=== PATIENT | female | born 1970 | race Caucasian/White ===

== ENCOUNTER 2017-09-11 08:31 | Day surgery (SDC) | payer BC ==
[~2017-09-11 08:31] MED LIST: Acetaminophen 1,000 MG/100 ML Infusion Bottle IV SCH; Bisacodyl 5 MG Tab PO PRN; Cyclobenzaprine 10 MG Tab PO PRN; Ketorolac 15 MG/ML SDV IVPUSH PRN; Lidocaine 1%/Sod Bicarbonate in NS 8.4% 1 ML Syringe IDERM PRN; Magnesium Hydroxide 400 MG/5 ML Susp 30 ML Cup PO PRN; Morphine 4 MG/ML Syringe IVPUSH PRN; Naloxone 0.4 MG/ML SDV IVPUSH PRN; Ondansetron 4 MG/2 ML SDV IVPUSH PRN; Sennosides 8.6 MG Tab PO PRN; Sodium Chloride 0.9% 10 ML Syringe FLUSH PRN
[2017-09-11] MEDS ORDERED: Ketamine 500 mg/10 ML MDV ONE (08:48)
[2017-09-11] MEDS ORDERED: Propofol 200 MG/20 ML SDV ONE ×2 (08:51→12:53)
[2017-09-11] MEDS ORDERED: Midazolam 1 MG/ML 2 ML SDV ONE (08:52)
[2017-09-11] MEDS ORDERED: fentaNYL 100 MCG/2 ML SDV ONE (08:52)
[2017-09-11] MEDS ORDERED: ceFAZolin 1 GM Vial ONE (08:53)
[2017-09-11] MEDS ORDERED: Lidocaine 1% 2 ML ONE ×2 (08:53)
[2017-09-11] MEDS ORDERED: Bupivacaine 0.75%/D5W 2 ML Amp ONE (08:53)
[2017-09-11] MEDS: Lactated Ringers 1,000 ML IV SCH ×2 (08:55→15:19)
[2017-09-11] MEDS ORDERED: oxyCODONE ER 10 MG TAB.ER PO SCH (10:00)
[2017-09-11] MEDS ORDERED: Acetaminophen 325 MG Tab PO SCH (10:00)
--- NOTE | 2017-09-11 10:24 | PCM.PREANE ---
Preanesthetic Assessment - Procedure Proposed Procedure: Right total knee arthroplasty - Anesthesia/Transfusion/Family Hx Anesthesia History: Prior Anesthesia Reaction (patient stated after inductions she gets "shaky and sweaty" is what she has been told from previous doctors. Patient stated she has not noticed any anesthetic complications herself.) Family History of Anesthesia Reaction: No Transfusion History: No Prior Transfusion(s) - Review of Systems General: No Symptoms Pulmonary: No Symptoms Cardiovascular: Other (heart murmer ) Gastrointestinal: No Symptoms Neurological: No Symptoms Other: Reports: None - Physical Assessment NPO Status Date: 09/10/17 NPO Status Time: 23:30 O2 Sat by Pulse Oximetry: 99 Respiratory Rate: 16 Vital Signs: Last Vital Signs Temp 36.7 C 09/11/17 08:45 Pulse 53 L 09/11/17 08:45 Resp 16 09/11/17 08:45 BP 115/63 09/11/17 08:45 Pulse Ox 99 09/11/17 08:45 Height: 1.65 m Weight: 104.78 kg ASA Class: 2 Mental Status: Alert & Oriented x3 Airway Class: Mallampati = 3 Dentition: Reports: Normal Dentition Thyro-Mental Finger Breadths: 3 Mouth Opening Finger Breadths: 3 ROM/Head Extension: Full Lungs: Clear to Auscultation, Normal Respiratory Effort Cardiovascular: Regular Rate, Regular Rhythm - Lab Values: Laboratory Last Values Urine HCG, Qual Negative (NEGATIVE) 09/11/17 08:43 MRSA (PCR) Negative 08/30/17 09:21 - Allergies Allergies/Adverse Reactions: Allergies Allergy/AdvReac Type Severity Reaction Status Date / Time No Known Allergies Allergy Verified 09/08/17 11:16 - Blood Blood Available: No Product(s) Available: None - Anesthesia Plan Pre-Op Medication Ordered: None - Acknowledgements Anesthesia Type Planned: Spinal, Regional Block (post op adductor canal block ) Pt an Appropriate Candidate for the Planned Anesthesia: Yes Alternatives and Risks of Anesthesia Discussed w Pt/Guardian: Yes Pt/Guardian Understands and Agrees with Anesthesia Plan: Yes PreAnesthesia Questionnaire HEENT History: Reports: None Cardiovascular History: Reports: Heart Murmur Respiratory History: Reports: None Gastrointestinal History: Reports: None Genitourinary History: Reports: None 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 Musculoskeletal History: Reports: Osteoarthritis Neurological History: Reports: None Psychiatric History: Reports: None Endocrine/Metabolic History: Reports: None Hematologic History: Reports: None Immunologic History: Reports: None Oncologic (Cancer) History: Reports: None Dermatologic History: Reports: None - Past Surgical History HEENT Surgical History: Reports: None Cardiovascular Surgical History: Reports: None Respiratory Surgical History: Reports: None GI Surgical History: Reports: None Female Surgical History: Reports: D&C Male Surgical History: Reports: None Endocrine Surgical History: Reports: None Neurological Surgical History: Reports: None Musculoskeletal Surgical History: Reports: Other (See Below) Other Musculoskeletal Surgeries/Procedures:: knee surgery, shoulder surgery Oncologic Surgical History: Reports: None Dermatological Surgical History: Reports: None - SUBSTANCE USE Smoking Status *Q: Former Smoker Recreational Drug Use History: No - HOME MEDS Home Medications: Home Meds Calcium Polycarbophil [Fiber Tabs] 625 mg PO DAILY 09/08/17 [History] Cholecalciferol (Vitamin D3) [Vitamin D3] 5,000 unit PO DAILY 09/08/17 [History] Chrom Gregor/Brindal Latif [Garcinia Cambogia Tablet] 1 tab PO DAILY 09/08/17 [ History] Ethinyl Estradiol/Levonorgest [Levora-28] 1 tab PO DAILY 09/08/17 [History] Fish Oil/Harper-3 Fatty Acids [Fish Oil 1,000 MG] 1 gm PO DAILY 09/08/17 [History ] Gluc 2KCl/Chondr/Marcial Hy/Hy Ac [Glucosamine & Chondroitin Cap] 1 cap PO DAILY [History] Multivitamin [Poly-Vitamin] 1 tab PO DAILY 09/08/17 [History] Potassium 99 mg PO DAILY 09/08/17 [History] - CURRENT (IN HOUSE) MEDS Current Meds: Current Medications Acetaminophen (Tylenol) 975 mg PO NOW KERRY Aspirin (Ecotrin) 325 mg PO BID KERRY Bisacodyl (Dulcolax) 5 mg PO DAILY PRN PRN Reason: Constipation Morphine Sulfate 8 mg/Epinephrine HCl 0.3 mg/Cefuroxime Sodium 750 mg/Ketorolac Tromethamine 30 mg/Sodium Chloride 27.9 ml 0 mg .XX ONETIME ONE Stop: 09/11/17 11:31 Cyclobenzaprine HCl (Flexeril) 10 mg PO TID PRN PRN Reason: Spasms Docusate Sodium (Colace) 100 mg PO BID KERRY Famotidine (Pepcid) 20 mg PO Q12H [facility] Lactated Ringer's (Ringers, Lactated) 1,000 mls @ 125 mls/hr IV ASDIRECTED [facility] Stop: 09/11/17 23:00 Last Admin: 09/11/17 08:55 Dose: 125 mls/hr Cefazolin Sodium/Dextrose 2 gm (/ Premix) 50 mls @ 100 mls/hr IV Q8H [facility] Stop: 09/11/17 23:29 Ketorolac Tromethamine (Toradol) 15 mg IVPUSH Q6H PRN PRN Reason: Pain Lidocaine/Sodium Bicarbonate (Buffered Lidocaine 1% In Ns 8.4%) 0.25 ml IDERM ONETIME PRN PRN Reason: Prior to IV Start Stop: 09/11/17 18:00 Last Admin: 09/11/17 08:55 Dose: 0.25 ml Magnesium Hydroxide (Milk Of Magnesia) 30 ml PO BID PRN PRN Reason: Constipation Morphine Sulfate (Morphine) 2 mg IVPUSH Q2H PRN PRN Reason: Breakthrough Pain Naloxone HCl (Narcan) 0.1 mg IVPUSH Q5M PRN PRN Reason: Oversedation Ondansetron HCl (Zofran) 4 mg IVPUSH Q6H PRN PRN Reason: Nausea/Vomiting Oxycodone HCl (Oxycontin) 10 mg PO ONETIME [facility] Oxycodone/Acetaminophen (Percocet 325-5 Mg) 1 - 2 tab PO Q4H PRN PRN Reason: Pain Pregabalin (Lyrica) 50 mg PO DAILY [facility] Senna (Senna) 8.6 mg PO BID PRN PRN Reason: Constipation Sodium Chloride (Saline Flush) 10 ml FLUSH ASDIRECTED PRN PRN Reason: Keep Vein Open Stop: 09/11/17 18:00 Discontinued Medications Bupivacaine HCl/Dextrose (Marcaine 0.75% Spinal) Confirm Administered Dose 2 ml .ROUTE .STK-MED ONE Stop: 09/11/17 08:54 Cefazolin Sodium (Ancef) Confirm Administered Dose 2 gm .ROUTE .STK-MED ONE Stop: 09/11/17 08:54 Fentanyl (Sublimaze) Confirm Administered Dose 100 mcg .ROUTE .STK-MED ONE Stop: 09/11/17 08:53 Lidocaine HCl (Xylocaine-Mpf 1%) Confirm Administered Dose 4 mls @ as directed .ROUTE .STK-MED ONE Stop: 09/11/17 08:54 Lidocaine HCl (Xylocaine-Mpf 1%) Confirm Administered Dose 2 mls @ as directed .ROUTE .STK-MED ONE Stop: 09/11/17 08:54 Ketamine HCl (Ketalar) Confirm Administered Dose 500 mg .ROUTE .STK-MED ONE Stop: 09/11/17 08:49 Midazolam HCl (Versed 1 Mg/Ml) Confirm Administered Dose 2 mg .ROUTE .STK-MED ONE Stop: 09/11/17 08:53 Propofol (Diprivan 20 Ml) Confirm Administered Dose 600 mg .ROUTE .STK-MED ONE Stop: 09/11/17 08:52
[2017-09-11] MEDS: Pregabalin 25 MG Cap PO SCH (10:48)
[2017-09-11] MEDS ORDERED: Dexamethasone 4 MG/ML SDV ONE (12:01)
[2017-09-11] MEDS ORDERED: Ondansetron 4 MG/2 ML SDV ONE (12:01)
[2017-09-11] MEDS: Iodine/Sodium Iodide 2% Tincture 30 ML Bottle ONE ×2 (12:23→12:40)
[2017-09-11] MEDS: Bupivacaine 0.25% 30 ML SDV ONE ×2 (12:24→12:49)
[2017-09-11] MEDS: ceFAZolin 1 GM Vial ONE ×2 (12:24→12:45)
[2017-09-11] MEDS: Morphine 8 MG, EPINEPHrine 0.3 MG, Cefuroxime 750 MG, Ketorolac 30 MG, Sodium Chloride ... ONE ×10 (12:24→12:49)
[2017-09-11] MEDS: Vancomycin 1 GM SDV ONE ×2 (12:25→12:54)
[2017-09-11] MEDS ORDERED: Ondansetron 4 MG/2 ML SDV IVPUSH PRN (12:40)
[2017-09-11] MEDS ORDERED: HYDROmorphone 0.5 MG/0.5 ML SYRINGE IV PRN (12:40)
[2017-09-11] MEDS ORDERED: Meperidine PF 50 MG/ML Syringe IVPUSH PRN (12:40)
[2017-09-11] MEDS ORDERED: fentaNYL 100 MCG/2 ML SDV IVPUSH PRN (12:40)
[2017-09-11] MEDS ORDERED: ePHEDrine 50 MG/ML SDV IVPUSH PRN (12:40)
[2017-09-11] MEDS ORDERED: diphenhydrAMINE 50 MG/ML SDV IVPUSH PRN (12:40)
[2017-09-11] MEDS ORDERED: HYDROmorphone 0.5 MG/0.5 ML Syringe IVPUSH PRN (12:45)
[2017-09-11] MEDS ORDERED: Ropivacaine 0.5% 5 MG/ML 30 ML SDV ONE (12:46)
[2017-09-11] MEDS ORDERED: EPINEPHrine 1 MG/ML SDV ONE (12:46)
[2017-09-11] MEDS ORDERED: Lactated Ringers 1,000 ML ONE (13:31)
--- NOTE | 2017-09-11 13:37 | PCM.POSTAN ---
POST ANESTHESIA ASSESSMENT - MENTAL STATUS Mental Status: Alert, Oriented - VITAL SIGNS Pulse Rate: 82 SaO2: 96 Resp Rate: 19 Blood Pressure: 98/73 Temperature: 36.6 C - RESPIRATORY Respiratory Status: Respiratory Rate WNL, Airway Patent, O2 Saturation Stable, Supplemental Oxygen - CARDIOVASCULAR CV Status: Pulse Rate WNL, Blood Pressure Stable - GASTROINTESTINAL GI Status: No Symptoms - PAIN Pain Score: 0 - POST OP HYDRATION Hydration Status: Adequate & Stable
--- NOTE | 2017-09-11 14:05 | PCM.SN ---
- Free Text/Narrative Note: Right selective femoral nerve block at the adductor canal for post-procedure pain control under US guidance requested by Dr. Hinton. Time Out: 1345 Start: 1345 End: 1358 Chart reviewed. Consent signed. Questions answered. Appropriate monitors applied. Time out performed. Right mid-shaft femur identified with ultrasound, scanning medially of femur, the femoral artery in the adductor canal visualized , and the femoral nerve located laterally to the artery. The skin was prepped lateral to the ultrasound probe with chlorahexadine times two. The 21ga 4 insulated block needle was inserted under direct ultrasound guidance into the adductor canal. 20mL of 0.5% ropivacaine with 1:200,000 epinephrine was injected circumferentially around the nerve with intermittent negative aspiration noted. Patient tolerated the procedure well. Aseptic technique noted along with sterile gloves, mask, and sterile probe cover. See pictures on progress note and vital signs on nurses notes. Block completed in PACU. Katharina Iirzarry CRNA
--- NOTE | 2017-09-11 14:52 | CR ---
Right knee: AP and lateral views of the right knee were obtained. Comparison: No previous knee study. Recently placed right knee prosthesis is seen. Components are aligned. Soft tissue air is noted. Underlying bony structures are intact. Impression: 1. Satisfactory postoperative radiographic appearance of recently placed right knee prosthesis. Diagnostic code #2
--- NOTE | 2017-09-11 17:12 | PCM.OPNOTE ---
- General Post-Op/Procedure Note Date of Surgery/Procedure: 09/11/17 Operative Procedure(s): right total knee arthroplasty Pre Op Diagnosis: right knee osteoarthrosis Post-Op Diagnosis: Same Anesthesia Technique: Local, MAC, Spinal Primary Surgeon: Hudson Hinton Anesthesia Provider: Eugenie Irizarry Draw Tender: Ludivina Schulz Draw Tender: Ruth Hung EBL in mLs: 800 Complications: None Condition: Good Free Text/Narrative:: Intake & Output 09/11/17 09/11/17 09/11/17 06:59 14:59 22:59 Intake Total 110 Output Total 425 Balance -315 size 5 femur and tibia 32x10
[2017-09-11] MEDS: ceFAZolin 2 GM in Premix Bag 1 BAG IV SCH (18:54)
[2017-09-11] MEDS: Famotidine 20 MG Tab PO SCH (21:17)
[2017-09-11] MEDS: Docusate Sodium 100 MG Cap PO SCH (21:17)
[2017-09-12] MEDS: Acetaminophen/oxyCODONE 325-5 MG Tab PO PRN ×5 (00:20→13:07)
[2017-09-12] MEDS: ceFAZolin 2 GM in Premix Bag 1 BAG IV SCH ×2 (03:10→11:07)
--- NOTE | 2017-09-12 06:18 | PCM.CONS ---
H&P History of Present Illness - General Date of Service: 09/12/17 Admit Problem/Dx: Admission Diagnosis/Problem Admission Diagnosis/Problem Osteoarthritis of knee Source of Information: Patient, Provider, RN, RN Notes Reviewed History Limitations: Reports: No Limitations - History of Present Illness Initial Comments - Free Text/Narative: Monet Parekh is a 46 yo female patient of Dr. Hinton who is post-operative day 1 of right TKA. Hospital medicine was consulted for post-operative medical care. At this time she is resting comfortably in bed. Pain is controlled. She denies any chest pain, shortness of breath, palpitations, nausea, or vomiting. She carries a history of: Heart murmur and osteoarthritis. She is a former smoker. She is a full code. Her primary care provider is NIKOLAY Alfred at [facility]. Right Knee Pain Score (Numeric/FACES): 0 - Related Data Allergies/Adverse Reactions: Allergies Allergy/AdvReac Type Severity Reaction Status Date / Time No Known Allergies Allergy Verified 09/08/17 11:16 Home Medications: Home Meds Calcium Polycarbophil [Fiber Tabs] 625 mg PO DAILY 09/08/17 [History] Cholecalciferol (Vitamin D3) [Vitamin D3] 5,000 unit PO DAILY 09/08/17 [History] Chrom Gregor/Brindal Latif [Garcinia Cambogia Tablet] 1 tab PO DAILY 09/08/17 [ History] Ethinyl Estradiol/Levonorgest [Levora-28] 1 tab PO DAILY 09/08/17 [History] Fish Oil/Downey-3 Fatty Acids [Fish Oil 1,000 MG] 1 gm PO DAILY 09/08/17 [History ] Gluc 2KCl/Chondr/Marcial Hy/Hy Ac [Glucosamine & Chondroitin Cap] 1 cap PO DAILY [History] Multivitamin [Poly-Vitamin] 1 tab PO DAILY 09/08/17 [History] Potassium 99 mg PO DAILY 09/08/17 [History] Past Medical History HEENT History: Reports: None Cardiovascular History: Reports: Heart Murmur Respiratory History: Reports: None Gastrointestinal History: Reports: None Genitourinary History: Reports: None 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 Musculoskeletal History: Reports: Osteoarthritis Neurological History: Reports: None Psychiatric History: Reports: None Endocrine/Metabolic History: Reports: None Hematologic History: Reports: None Immunologic History: Reports: None Oncologic (Cancer) History: Reports: None Dermatologic History: Reports: None - Past Surgical History HEENT Surgical History: Reports: None Cardiovascular Surgical History: Reports: None Respiratory Surgical History: Reports: None GI Surgical History: Reports: None Female Surgical History: Reports: D&C Male Surgical History: Reports: None Endocrine Surgical History: Reports: None Neurological Surgical History: Reports: None Musculoskeletal Surgical History: Reports: Other (See Below) Other Musculoskeletal Surgeries/Procedures:: knee surgery, shoulder surgery Oncologic Surgical History: Reports: None Dermatological Surgical History: Reports: None Social & Family History - Tobacco Use Smoking Status *Q: Former Smoker Used Tobacco, but Quit: Yes Month/Year Tobacco Last Used: 1996 - Caffeine Use Caffeine Use: Reports: Coffee - Recreational Drug Use Recreational Drug Use: No Drug Use in Last 12 Months: No H&P Review of Systems - Review of Systems: Review Of Systems: See Below General: Reports: No Symptoms HEENT: Reports: No Symptoms Pulmonary: Reports: No Symptoms Cardiovascular: Reports: No Symptoms Gastrointestinal: Reports: No Symptoms Genitourinary: Reports: No Symptoms Musculoskeletal: Reports: No Symptoms, Muscle Stiffness (right leg ) Skin: Reports: No Symptoms Psychiatric: Reports: No Symptoms Neurological: Reports: No Symptoms Hematologic/Lymphatic: Reports: No Symptoms Immunologic: Reports: No Symptoms Exam - Exam Exam: See Below - Vital Signs Vital Signs: Last Vital Signs Temp 98.8 F 09/12/17 03:16 Pulse 56 L 09/12/17 03:16 Resp 14 09/12/17 03:16 BP 101/52 L 09/12/17 03:16 Pulse Ox 94 L 09/12/17 03:16 Weight: 231 lb - Exam Quality Assessment: Supplemental Oxygen (1L), DVT Prophylaxis General: Alert, Oriented, Cooperative. No: Mild Distress HEENT: Conjunctiva Clear, EACs Clear, EOMI, Hearing Intact, Mucosa Moist & [place] , Nares Patent, Posterior Pharynx Clear, PERRLA Neck: Supple, Trachea Midline. No: JVD Lungs: Clear to Auscultation, Normal Respiratory Effort Cardiovascular: Regular Rate, Regular Rhythm GI/Abdominal Exam: Normal Bowel Sounds, Soft, Non-Tender, No Organomegaly, No Distention, No Abnormal Bruit, No Mass, Pelvis Stable (Female) Exam: Deferred Rectal (Female) Exam: Deferred Back Exam: Normal Inspection, Full Range of Motion Extremities: No Pedal Edema, Normal Capillary Refill, Leg Pain, Limited Range of Motion, Other (YANELY bandage in place on right leg. Bandage is dry and intact. Cooling pack in place.) Peripheral Pulses: 3+: Radial (L), Radial (R), Posterior Tibial (L), Dorsalis Pedis (L), Dorsalis Pedis (R) Skin: Warm, Dry, Intact Neurological: Cranial Nerves Intact (grossly ) Neuro Extensive - Mental Status: Alert, Oriented x3, Normal Mood/Affect, Normal Cognition, Memory Intact Psychiatric: Alert, Normal Affect, Normal Mood - Patient Data Lab Results Last 24 hrs: Laboratory Results - last 24 hr 09/11/17 Range/Units 08:43 Urine HCG, Qual Negative (NEGATIVE) Result Diagrams: 09/12/17 06:30 09/12/17 06:30 Consult PN Assessment/Plan POD#: 1 Procedures: Procedures DXA BONE DENSITY AXIAL (08/30/17) (1) S/P total knee arthroplasty SNOMED Code(s): 4311461714788, 832686595, 2091127343211 Code(s): Z96.659 - PRESENCE OF UNSPECIFIED ARTIFICIAL KNEE JOINT Priority: High Current Visit: Yes Qualifiers: Laterality: right Qualified Code(s): Z96.651 - Presence of right artificial knee joint (2) Osteoarthritis SNOMED Code(s): 529531686 Code(s): M19.90 - UNSPECIFIED OSTEOARTHRITIS, UNSPECIFIED SITE Priority: High Current Visit: Yes Qualifiers: Osteoarthritis location: knee Osteoarthritis type: primary Laterality: right Qualified Code(s): M17.11 - Unilateral primary osteoarthritis, right knee Problem List Initiated/Reviewed/Updated: Yes Plan: I/P: Acute: S/P right total knee arthroplasty - post-operative day 1 -DVT prophylaxis and pain management per primary care team -PT/OT -IS/RT -Monitor oxygen saturation -Titrate oxygen as needed - on 1L currently, wean -Vital signs stable -Monitor labs -Pre-operative Hgb was 13.9, now 10.8 -Pre-operative GFR was 89, Now >60 Osteoarthritis of right knee -Pain management per primary care team Chronic: Heart murmer Plan: CM for discharge planning GI prophylaxis Home medications as indicated Other orders as listed above Routine AM labs She is a full code. Her PCP is STEVEN AlfredP at [facility] Will attempt to wean O2 throughout day. She reports a history of lower BPs and bradycardia. From a hospitalist standpoint she is doing well and clear for discharge pending primary team agreement. Thank you for allowing us to participate in the care of this patient!! Requesting Provider: Dr. Hinton Date Consult Requested: 09/11/17 Reason for Consult: Post-operative medical care Patient History Reviewed: Yes Admission H&P Reviewed: Yes Time Spent (in minutes): 30
--- NOTE | 2017-09-12 07:49 | PCM48HPAN ---
Post Anesthesia Note - EVALUATION WITHIN 48HRS OF ANESTHETIC Vital Signs in Normal Range: Yes Patient Participated in Evaluation: Yes Respiratory Function Stable: Yes Airway Patent: Yes Cardiovascular Function Stable: Yes Hydration Status Stable: Yes Pain Control Satisfactory: Yes Nausea and Vomiting Control Satisfactory: Yes Mental Status Recovered: Yes (Very pleased. Has no pain, nausea or dizziness) Pulse Rate: 56 Resp Rate: 14 Temperature: 98.8 F Blood Pressure: 101/52
[2017-09-12] MEDS: Famotidine 20 MG Tab PO SCH (08:23)
[2017-09-12] MEDS: Docusate Sodium 100 MG Cap PO SCH (08:23)
[2017-09-12] MEDS ORDERED: ETHINYL ESTRADIOL PO SCH (09:00)
[2017-09-12] MEDS ORDERED: Cholecalciferol (Vitamin D3) 1,000 Unit Tab PO SCH (09:00)
[2017-09-12] MEDS ORDERED: Multivitamins,Therapeutic Tab PO SCH (09:00)
[2017-09-12] MEDS ORDERED: Aspirin 325 MG Tab.EC PO SCH (09:00)
[2017-09-12] MEDS ORDERED: Calcium Polycarbophil 625 MG Tab PO SCH (09:00)
[2017-09-12] MEDS ORDERED: LEVONORGESTREL PO SCH (09:00)
[2017-09-12] MEDS ORDERED: Non-Formulary Medication 1 Each (Gluc 2kcl/Chondr/Coll Hy/Hy Ac [Glucosamine & Chondroitin PO SCH (09:00)
[2017-09-12] MEDS: Pregabalin 25 MG Cap PO SCH (09:03)
[2017-09-12] MEDS: Morphine 8 MG, EPINEPHrine 0.3 MG, Cefuroxime 750 MG, Ketorolac 30 MG, Sodium Chloride ... ONE ×5 (09:03)
--- NOTE | 2017-09-12 23:15 | PCM.SURGPN ---
- General Info Date of Service: 09/12/17 POD#: 1 Functional Status: Reports: Pain Controlled, Tolerating Diet, Ambulating, Urinating, Incentive Spirometry, Other (The pt feels prepared for discharge to home today.) - Patient Data Vitals - Most Recent: Last Vital Signs Temp 98.1 F 09/12/17 11:59 Pulse 68 09/12/17 11:59 Resp 16 09/12/17 11:59 BP 119/67 09/12/17 11:59 Pulse Ox 97 09/12/17 11:59 Weight - Most Recent: 231 lb I&O - Last 24 Hours: Intake & Output 09/12/17 09/12/17 09/13/17 14:59 22:59 06:59 Intake Total 300 Balance 300 Lab Results Last 24 Hrs: Laboratory Results - last 24 hr 09/12/17 09/12/17 Range/Units 06:30 06:30 WBC 11.70 H (3.98-10.04) K/mm3 RBC 3.69 L (3.98-5.22) M/mm3 Hgb 10.8 L (11.2-15.7) gm/L Hct 33.2 L (34.1-44.9) % MCV 90.0 (79.4-94.8) fl MCH 29.3 (25.6-32.2) pg MCHC 32.5 (32.2-35.5) g/dl RDW Std Deviation 42.0 (36.4-46.3) fL Plt Count 243 (182-369) K/mm3 MPV 9.4 (9.4-12.3) fl Sodium 142 (136-145) mEq/L Potassium 3.7 (3.5-5.1) mEq/L Chloride 106 (98-107) mEq/L Carbon Dioxide 28 (21-32) mEq/L Anion Gap 11.7 (5-15) BUN 10 (7-18) mg/dL Creatinine 0.7 (0.55-1.02) mg/dL Est Cr Clr Drug Dosing 88.44 mL/min Estimated GFR (MDRD) > 60 (>60) mL/min BUN/Creatinine Ratio 14.3 (14-18) Glucose 109 H (74-106) mg/dL Calcium 8.1 L (8.5-10.1) mg/dL Total Bilirubin 0.6 (0.2-1.0) mg/dL AST 16 (15-37) U/L ALT 27 (14-59) U/L Alkaline Phosphatase 44 L (46-116) U/L Total Protein 5.3 L (6.4-8.2) g/dl Albumin 2.7 L (3.4-5.0) g/dl Globulin 2.6 gm/dL Albumin/Globulin Ratio 1.0 (1-2) Med Orders - Current: Current Medications Discontinued Medications Acetaminophen (Tylenol) 975 mg PO NOW [facility] Last Admin: 09/11/17 10:50 Dose: 975 mg Aspirin (Ecotrin) 325 mg PO BID [facility] Last Admin: 09/12/17 08:23 Dose: 325 mg Bisacodyl (Dulcolax) 5 mg PO DAILY PRN PRN Reason: Constipation Bupivacaine HCl (Marcaine 0.25%) Confirm Administered Dose 30 ml .ROUTE .STK- MED ONE Stop: 09/11/17 10:10 Last Admin: 09/11/17 12:49 Dose: 30 ml Bupivacaine HCl/Dextrose (Marcaine 0.75% Spinal) Confirm Administered Dose 2 ml .ROUTE .STK-MED ONE Stop: 09/11/17 08:54 Calcium Polycarbophil (Fibercon) 625 mg PO DAILY [facility] Last Admin: 09/12/17 08:23 Dose: 625 mg Cefazolin Sodium (Ancef) Confirm Administered Dose 2 gm .ROUTE .STK-MED ONE Stop: 09/11/17 08:54 Cefazolin Sodium (Ancef) Confirm Administered Dose 2 gm .ROUTE .STK-MED ONE Stop: 09/11/17 10:10 Last Admin: 09/11/17 12:45 Dose: 2 gm Cholecalciferol (Vitamin D3) 5,000 units PO DAILY [facility] Last Admin: 09/12/17 08:23 Dose: 5,000 units Morphine Sulfate 8 mg/Epinephrine HCl 0.3 mg/Cefuroxime Sodium 750 mg/Ketorolac Tromethamine 30 mg/Sodium Chloride 27.9 ml 0 mg .XX ONETIME ONE Stop: 09/11/17 11:31 Last Admin: 09/12/17 09:03 Dose: Not Given Cyclobenzaprine HCl (Flexeril) 10 mg PO TID PRN PRN Reason: Spasms Last Admin: 09/11/17 21:17 Dose: 10 mg Dexamethasone (Dexamethasone) Confirm Administered Dose 4 mg .ROUTE .STK-MED ONE Stop: 09/11/17 12:02 Diphenhydramine HCl (Benadryl) 25 mg IVPUSH Q6H PRN PRN Reason: Pruritis Stop: 09/11/17 16:00 Docusate Sodium (Colace) 100 mg PO BID [facility] Last Admin: 09/12/17 08:23 Dose: 100 mg Ephedrine Sulfate (Ephedrine Sulfate) 5 mg IVPUSH ASDIRECTED PRN PRN Reason: Hypotension Stop: 09/11/17 16:00 Epinephrine HCl (Adrenalin) Confirm Administered Dose 1 mg .ROUTE .STK-MED ONE Stop: 09/11/17 12:47 Famotidine (Pepcid) 20 mg PO Q12H [facility] Last Admin: 09/12/17 08:23 Dose: 20 mg Fentanyl (Sublimaze) Confirm Administered Dose 100 mcg .ROUTE .STK-MED ONE Stop: 09/11/17 08:53 Fentanyl (Sublimaze) 50 mcg IVPUSH Q5M PRN PRN Reason: Pain Hydromorphone HCl (Dilaudid) 0.5 mg IV ASDIRECTED PRN PRN Reason: Severe Pain Stop: 09/11/17 16:00 Hydromorphone HCl (Dilaudid) 0.5 mg IVPUSH ASDIRECTED PRN PRN Reason: Severe Pain Stop: 09/11/17 16:00 Lactated Ringer's (Ringers, Lactated) 1,000 mls @ 125 mls/hr IV ASDIRECTED [facility] Stop: 09/11/17 23:00 Last Admin: 09/11/17 15:19 Dose: 125 mls/hr Cefazolin Sodium/Dextrose 2 gm (/ Premix) 50 mls @ 100 mls/hr IV Q8H [facility] Stop: 09/12/17 10:29 Last Admin: 09/12/17 11:07 Dose: 100 mls/hr Lidocaine HCl (Xylocaine-Mpf 1%) Confirm Administered Dose 2 mls @ as directed .ROUTE .STK-MED ONE Stop: 09/11/17 08:54 Lidocaine HCl (Xylocaine-Mpf 1%) Confirm Administered Dose 2 mls @ as directed .ROUTE .STK-MED ONE Stop: 09/11/17 08:54 Lactated Ringer's (Ringers, Lactated) Confirm Administered Dose 1,000 mls @ as directed .ROUTE .[facility]-MED ONE Stop: 09/11/17 13:32 Iodine (Iodine 2% Mild Tincture) Confirm Administered Dose 30 ml .ROUTE .STK- MED ONE Stop: 09/11/17 10:10 Last Admin: 09/11/17 12:40 Dose: 18 ml Ketamine HCl (Ketalar) Confirm Administered Dose 500 mg .ROUTE .STK-MED ONE Stop: 09/11/17 08:49 Ketorolac Tromethamine (Toradol) 15 mg IVPUSH Q6H PRN PRN Reason: Pain Last Admin: 09/11/17 23:16 Dose: 15 mg Lidocaine/Sodium Bicarbonate (Buffered Lidocaine 1% In Ns 8.4%) 0.25 ml IDERM ONETIME PRN PRN Reason: Prior to IV Start Stop: 09/11/17 18:00 Last Admin: 09/11/17 08:55 Dose: 0.25 ml Magnesium Hydroxide (Milk Of Magnesia) 30 ml PO BID PRN PRN Reason: Constipation Meperidine HCl (Demerol) 12.5 mg IVPUSH ONETIME PRN PRN Reason: Shivering Stop: 09/11/17 16:00 Midazolam HCl (Versed 1 Mg/Ml) Confirm Administered Dose 2 mg .ROUTE .ST-MED ONE Stop: 09/11/17 08:53 Morphine Sulfate (Morphine) 2 mg IVPUSH Q2H PRN PRN Reason: Breakthrough Pain Multivitamins (Thera) 1 each PO DAILY [facility] Last Admin: 09/12/17 08:23 Dose: 1 each Naloxone HCl (Narcan) 0.1 mg IVPUSH Q5M PRN PRN Reason: Oversedation Non-Formulary Medication (Gluc 2kcl/Chondr/Marcial Hy/Hy Ac [Glucosamine & Chondroitin Cap]) 1 cap PO DAILY [facility] Ondansetron HCl (Zofran) 4 mg IVPUSH Q6H PRN PRN Reason: Nausea/Vomiting Ondansetron HCl (Zofran) Confirm Administered Dose 4 mg .ROUTE .STK-MED ONE Stop: 09/11/17 12:02 Ondansetron HCl (Zofran) 4 mg IVPUSH ONETIME PRN PRN Reason: Nausea/Vomiting Stop: 09/11/17 16:00 Oxycodone HCl (Oxycontin) 10 mg PO ONETIME [facility] Last Admin: 09/11/17 10:49 Dose: 10 mg Oxycodone/Acetaminophen (Percocet 325-5 Mg) 1 - 2 tab PO Q4H PRN PRN Reason: Pain Last Admin: 09/12/17 13:07 Dose: 2 tab Ethinyl Estradiol/Levonorgest [Levora- 28] Tabs 0 each PO DAILY [facility] Last Admin: 09/12/17 08:38 Dose: Not Given Potassium 99 Mg 0 each PO DAILY [facility] Last Admin: 09/12/17 08:37 Dose: Not Given Pregabalin (Lyrica) 50 mg PO DAILY [facility] Last Admin: 09/12/17 09:03 Dose: Not Given Propofol (Diprivan 20 Ml) Confirm Administered Dose 600 mg .ROUTE .STK-MED ONE Stop: 09/11/17 08:52 Propofol (Diprivan 20 Ml) Confirm Administered Dose 200 mg .ROUTE .STK-MED ONE Stop: 09/11/17 12:54 Ropivacaine (Naropin 0.5%) Confirm Administered Dose 30 ml .ROUTE .STK-MED ONE Stop: 09/11/17 12:47 Senna (Senna) 8.6 mg PO BID PRN PRN Reason: Constipation Sodium Chloride (Saline Flush) 10 ml FLUSH ASDIRECTED PRN PRN Reason: Keep Vein Open Stop: 09/11/17 18:00 Tranexamic Acid (Cyklokapron) Confirm Administered Dose 1,000 mg .ROUTE .STK- MED ONE Stop: 09/11/17 10:09 Last Admin: 09/11/17 12:57 Dose: 1,000 mg Vancomycin HCl (Vancomycin) Confirm Administered Dose 1 gm .ROUTE .STK-MED ONE Stop: 09/11/17 10:10 Last Admin: 09/11/17 12:54 Dose: 1 gm - Exam Wound/Incisions: Dressing Dry and Intact General: Alert, Cooperative, No Acute Distress Lungs: Normal Respiratory Effort Extremities: Other (NVS intact for BLE. Lico's negative. Strong right quad contraction.) - Problem List Review Problem List Initiated/Reviewed/Updated: Yes - My Orders Last 24 Hours: Active Orders 24 hr Category Date Time Status Ready for Discharge [RC] PER UNIT ROUTINE Care 09/12/17 13:27 Active - Assessment Assessment (Free Text/Narrative):: POD#1 - s/p right TKA - Plan Plan (Free Text/Narrative):: 1. Hgb 10.8 today. 2. ASA 325mg PO BID, frequent mobility, TEDs for VTE prophylaxis. 3. Outpatient therapy. 4. Discharge to home today. The pt's case was discussed with Dr. Hinton today.
--- NOTE | 2017-09-14 06:55 | OR ---
DATE OF OPERATION: 09/11/2017 SURGEON: Hudson Hinton MD OPERATION PERFORMED: Right total knee arthroplasty. PREOPERATIVE DIAGNOSIS: Right knee osteoarthrosis. POSTOPERATIVE DIAGNOSIS: Right knee osteoarthrosis. ANESTHESIA: Local MAC with spinal. ANESTHESIA PROVIDER: Janet Proctor. SOLDERING MACHINE OPERATOR HELPER: Ludivina Schulz PA-C and Ruth Hung LPN. ESTIMATED BLOOD LOSS: 800 mL COMPLICATIONS: None. CONDITION: Stable. IMPLANTS: 1. Olivia size 5 press-fit CR femur. 2. Olivia size 5 press-fit tibial base plate. 3. Olivia size 5, 9 mm CS polyethylene insert. 4. Olivia size 32 x 10 mm press-fit asymmetric patella. DESCRIPTION OF PROCEDURE: The patient was identified in the preop holding area. Proper site was marked and identified by the surgeon. The patient was taken back to the operating theater. After adequate anesthesia, the patient's right lower extremity had a nonsterile tourniquet applied and it was then sterilely prepped and draped in the usual sterile fashion. OR timeout was performed. The patient received 2 g IV Ancef. At this time, right lower extremity was exsanguinated. Tourniquet was insufflated to 300 mmHg. Standard medial parapatellar incision was made. Medial parapatellar arthrotomy was created. Deep fibers of the MCL were raised and anterior fat pad was resected. At this time, attention was turned to the patella. Patella measured 24, it was resected to a 14 for a 32 x 10 patella. Drill holes were then drilled and found to be in adequate position. The drill was then drilled in the distal femur and the intramedullary distal femoral cutting guide was then placed. 8 mm was resected off the distal femur and was found to be an adequate resection. Sizing guide was placed. It was found to be a size 5 press-fit CR femur femur that was shown on the implant record at the beginning of this dictation. The drill holes were drilled for the epicondylar axis using Whitesides line and epicondyles as reference. At this time, the 4-in - 1 cutting block was placed. An anterior posterior and anterior and posterior chamfer cuts were then completed. The correct size box cut was then placed and the box cut was completed and found to be an adequate resection. Attention was turned to the tibia. The posterior medial lateral retractors were placed. The extramedullary tibial guide was placed. It was placed in the old footprint of the ACL. It was aligned with the center of the ankle and 0 degrees of slope, 9 mm was then resected off the unaffected lateral side. There was found to be an acceptable reduction. At this time, posterior osteophytes were removed along with medial and lateral meniscus. A trial implant was placed with a correct sized tibia that was mentioned at the beginning of the dictation. A size 5, 9 mm trial was then placed. The patient's knee was brought through range of motion. The patella was tracking centrally and was stable to varus and valgus stress. Alignment was found to be roughly at 0 degrees. The tibia was stamped and drilled in proper rotation. The universal tibial base plate was press-fit in place. Next, the size 5 press-fit CR femur femur was press-fit into place and the size 5, 9 mm CS polyethylene was placed. The patient's knee was brought into full extension. The patella was then press-fit in place at this time. Tourniquet was deflated. One liter dilute Betadine solution was irrigated through the knee along with 3 L of pulse lavage irrigation with Ancef. Periarticular injection was then completed. The patient's knee was brought through a range of motion. Knee was found to be stable to varus valgus stress, the patella was tracking centrally with full range of motion. At this time, a #2 barbed suture was used for closure of the medial parapatellar arthrotomy. Topical tranexamic acid was placed. 2-0 Vicryl was used subcutaneously, a running 3-0 Monocryl was used subcuticularly. The patient tolerated the procedure well and was sent to the PACU in stable condition. [facility] /[id number] SONY
== END 2017-09-12 14:52 | disposition home or self-care (01) ==
LOC: JD.SDS 08:31 → JD.MS 08:33 → JD.OB 11:47 → JD.SDS 09-12 14:52
PROVIDERS: ATTEND Orthopaedic Surgery
DX: M17.11 Unilateral primary osteoarthritis, right knee (principal); E66.9 Obesity, unspecified; Z79.899 Other long term (current) drug therapy; Z87.891 Personal history of nicotine dependence; Z68.35 Body mass index [BMI] 35.0-35.9, adult
CPT/HCPCS: 27447; 36415; 64450; 73560; 80053; 81025; 85027; 87641; 97110; 97116; 97161; 97165; 97535; A9270; C1776; J0171; J0690; J0697; J1100; J1885; J2250; J2270; J2405; J2795; J3010; J3370; J3490; J7120; J2704